=== PATIENT | female | born 1930 | race Two or more races ===

== ENCOUNTER 2018-01-05 15:04 | Inpatient (IN) | payer MEDICARE, BC ==
[~2018-01-05] VITALS: Ht 157.5 cm; Wt 81.6 kg
[2018-01-05 15:30] VITALS: BP 118/81
[2018-01-05] MEDS ORDERED: Metoprolol 5mg/5ml Inj IVP ONE ×2 (15:45→16:45)
[2018-01-05 15:50] LABS: HEMATOCRIT 33.9 % (37.0-47.0); HEMOGLOBIN 11.3 G/DL (12.0-16.0); MEAN CORPUSCULAR VOLUME 93 FL (80-99); PLATELET COUNT 217 K/UL (150-450); RED BLOOD COUNT 3.65 M/UL (4.20-5.40); RED CELL DISTRIBUTION WIDTH 17.2 % (11.6-14.8)
[2018-01-05] MEDS ORDERED: Digoxin 0.5mg/2ml Inj IVP ONE (16:00)
[2018-01-05 16:12] LABS: ANION GAP 17 mmol/L (5-15); BLOOD UREA NITROGEN 32 mg/dL (7-18); CALCIUM 8.9 MG/DL (8.5-10.1); CARBON DIOXIDE 18 MMOL/L (21-32); CHLORIDE 105 MMOL/L (98-107); CREATININE 0.9 MG/DL (0.55-1.30); POTASSIUM 4.8 MMOL/L (3.5-5.1); SODIUM 140 MMOL/L (136-145)
[2018-01-05 16:19] LABS: INR 0.9 (0.9-1.1)
[2018-01-05] MEDS ORDERED: FERROUS SULFAT325 MG ORAL (16:19)
[2018-01-05] MEDS ORDERED: PREDNISONE10 MG ORAL (16:19)
[2018-01-05] MEDS ORDERED: DOXEPIN HCL25 MG ORAL (16:19)
[2018-01-05] MEDS ORDERED: MULTI-VITAMIN1 EACH PO (16:19)
[2018-01-05 16:25] LABS: ALANINE AMINOTRANSFERASE 35 U/L (12-78); ALBUMIN 2.5 G/DL (3.4-5.0); ALBUMIN/GLOBULIN RATIO 0.7 (1.0-2.7); ALKALINE PHOSPHATASE 83 U/L (46-116); ASPARTATE AMINO TRANSFERASE 18 U/L (15-37); BILIRUBIN,TOTAL 0.4 MG/DL (0.2-1.0); CKMB 1.5 NG/ML (0.0-3.6); CREATINE KINASE 20 U/L (26-308)
[2018-01-05 16:30] VITALS: BP 125/92
[2018-01-05] MEDS ORDERED: ELIQUIS2.5 MG PO (16:38)
[2018-01-05] MEDS ORDERED: VITAMIN D22000 UNIT ORAL (16:38)
[2018-01-05] MEDS ORDERED: ALLEGRA ALLERG180 M1 PO (16:38)
[2018-01-05] MEDS ORDERED: AMIODARONE HCL400 M1 ORAL ×2 (16:38→16:43)
[2018-01-05] MEDS ORDERED: SYNTHROID75 MCG ORAL (16:38)
[2018-01-05] MEDS ORDERED: VITAMIN C500 M1 ORAL (16:38)
[2018-01-05] MEDS ORDERED: XANAX1 MG ORAL (16:38)
[2018-01-05] MEDS ORDERED: CAMPHO PHENIQUE TP (16:40)
[2018-01-05] MEDS ORDERED: CRANBERRY500 M4 PO (16:41)
[2018-01-05] MEDS ORDERED: COLACE100 MG ORAL (16:41)
[2018-01-05] MEDS ORDERED: FAMOTIDINE10 MG ORAL (16:42)
[2018-01-05] MEDS ORDERED: OCUVITE TABLET1 EAC1 ORAL (16:43)
[2018-01-05] MEDS ORDERED: PRAVASTATIN SOD20 M1 ORAL (16:43)
[2018-01-05] MEDS ORDERED: COREG25 MG ORAL (16:44)
[2018-01-05 17:31] VITALS: BP 154/112
--- NOTE | 2018-01-05 17:54 | Cardiac Electrophysiology PN ---
Subjective Subjective Patient seen in ER and DW Dr. Bhagat and both daughters in ER [id number] DW Dr Araiza. Objective Last 24 Hour Vital Signs Date Time Temp Pulse Resp B/P (MAP) Pulse Ox O2 Delivery O2 Flow Rate FiO2 01/05/18 17:31 131 27 154/112 94 Room Air 01/05/18 17:27 131 27 01/05/18 16:57 131 154/112 01/05/18 16:30 129 29 125/92 96 Room Air 01/05/18 16:21 120 01/05/18 15:51 132 118/81 01/05/18 15:30 97.2 137 26 118/81 98 Room Air 97.2 01/05/18 15:04 97.1 132 118/81 98 Room Air 97.2 Laboratory Tests Test 01/05/18 15:30 01/05/18 16:30 White Blood Count 19.0 K/UL (4.8-10.8) H Red Blood Count 3.65 M/UL (4.20-5.40) L Hemoglobin 11.3 G/DL (12.0-16.0) L Hematocrit 33.9 % (37.0-47.0) L Mean Corpuscular Volume 93 FL (80-99) Mean Corpuscular Hemoglobin 31.0 PG (27.0-31.0) Mean Corpuscular Hemoglobin Concent 33.4 G/DL (32.0-36.0) Red Cell Distribution Width 17.2 % (11.6-14.8) H Platelet Count 217 K/UL (150-450) Mean Platelet Volume 7.5 FL (6.5-10.1) Neutrophils (%) (Auto) % (45.0-75.0) Lymphocytes (%) (Auto) % (20.0-45.0) Monocytes (%) (Auto) % (1.0-10.0) Eosinophils (%) (Auto) % (0.0-3.0) Basophils (%) (Auto) % (0.0-2.0) Differential Total Cells Counted 100 Neutrophils % (Manual) 91 % (45-75) H Lymphocytes % (Manual) 7 % (20-45) L Monocytes % (Manual) 2 % (1-10) Eosinophils % (Manual) 0 % (0-3) Basophils % (Manual) 0 % (0-2) Band Neutrophils 0 % (0-8) Platelet Estimate Adequate Platelet Morphology Normal Hypochromasia Occasional Anisocytosis 1+ Prothrombin Time 9.4 SEC (9.30-11.50) Prothromb Time International Ratio 0.9 (0.9-1.1) Activated Partial Thromboplast Time 24 SEC (23-33) Sodium Level 140 MMOL/L (136-145) Potassium Level 4.8 MMOL/L (3.5-5.1) Chloride Level 105 MMOL/L (98-107) Carbon Dioxide Level 18 MMOL/L (21-32) L Anion Gap 17 mmol/L (5-15) H Blood Urea Nitrogen 32 mg/dL (7-18) H Creatinine 0.9 MG/DL (0.55-1.30) Estimat Glomerular Filtration Rate mL/min (>60) Glucose Level 191 MG/DL (74-106) H Calcium Level 8.9 MG/DL (8.5-10.1) Total Bilirubin 0.4 MG/DL (0.2-1.0) Aspartate Amino Transf (AST/SGOT) 18 U/L (15-37) Alanine Aminotransferase (ALT/SGPT) 35 U/L (12-78) Alkaline Phosphatase 83 U/L (46-116) Total Creatine Kinase 20 U/L (26-308) L Creatine Kinase MB 1.5 NG/ML (0.0-3.6) Creatine Kinase MB Relative Index 7.5 Troponin I 0.005 ng/mL (0.000-0.056) Pro-B-Type Natriuretic Peptide 5563 pg/mL (0-125) H Total Protein 5.9 G/DL (6.4-8.2) L Albumin 2.5 G/DL (3.4-5.0) L Globulin 3.4 g/dL Albumin/Globulin Ratio 0.7 (1.0-2.7) L Lipase 189 U/L (73-393) Lactic Acid Level 3.20 mmol/L (0.66-2.22) H Chandra Sosa MD January 05, 2018 17:54
[2018-01-05 20:00] VITALS: BP 159/88
[2018-01-05 20:25] LABS: BILIRUBIN, URINE NEGATIVE (NEGATIVE); COLOR,URINE AMBER; GLUCOSE, URINE (UA) NEGATIVE (NEGATIVE); KETONES,URINE NEGATIVE (NEGATIVE); LEUKOCYTE ESTERASE ,URINE 2+ (NEGATIVE); NITRITE,URINE NEGATIVE (NEGATIVE); PH,URINE 5 (4.5-8.0); PROTEIN,URINE 2+ (NEGATIVE); UROBILINOGEN,URINE NORMAL MG/DL (0.0-1.0)
[2018-01-05 20:31] LABS: APPEARANCE,URINE SLIGHTLY CLOUDY
[2018-01-05] MEDS ORDERED: Bactrim-DS 1 tab ORAL SCH (20:45)
[2018-01-05] MEDS ORDERED: Milk of Magnesia 30ml Ud ORAL PRN (21:00)
[2018-01-05] MEDS ORDERED: Zolpidem 5mg tab ORAL PRN (21:00)
[2018-01-05] MEDS: Cephalexin 250mg Cap ORAL SCH (22:58)
[2018-01-05] MEDS: Triamcinolone 0.1% 15gm Cr TOPIC PRN (22:59)
[2018-01-05] MEDS: Eliquis 2.5mg tablet ORAL SCH (22:59)
[2018-01-05] MEDS: Carvedilol 25mg Tab ORAL SCH (22:59)
[2018-01-05] MEDS: Amiodarone 200mg tab ORAL SCH (22:59)
[2018-01-05] MEDS: ALPRAZolam 0.5mg tab ORAL SCH (23:04)
[2018-01-06] VITALS: BP 117/72
--- NOTE | 2018-01-06 01:45 | Consultation ---
DATE OF CONSULTATION: 01/05/2018 CARDIAC ELECTROPHYSIOLOGY CONSULTATION CONSULTING PHYSICIAN: Chandra Sosa M.D. REFERRING PHYSICIAN: Montana Araiza M.D. REASON FOR CONSULTATION: Atrial fibrillation with rapid ventricular response. HISTORY OF PRESENT ILLNESS: The patient is a very pleasant 87-year-old lady with history of hypertension, paroxysmal atrial fibrillation as well as hypothyroidism, had multiple allergic reactions possibly including Norvasc. The patient's diltiazem was discontinued and I feel that her rash may be related to the diltiazem. The patient was brought in by ambulance from [facility] due to shortness of breath and tachycardia, heart rate 140s. In the emergency room, the patient was found to be in atrial fibrillation with rapid ventricular response, heart rate around 140s. Cardiac electrophysiology consultation was obtained for further evaluation and management. It is of note that the patient was recently at [facility] with some abdominal abscess that was drained. REVIEW OF SYSTEMS: Review of systems was performed and was negative other than what is mentioned in the history of present illness. PAST MEDICAL HISTORY: 1. Hypertension. 2. Paroxysmal atrial fibrillation. 3. History of small bowel obstruction. 4. Status post cholecystectomy. 5. Gastroesophageal reflux disease. 6. Right breast cancer status post lumpectomy. 7. Hyperlipidemia. 8. Hypothyroidism. 9. Hiatal hernia. FAMILY HISTORY: Noncontributory. SOCIAL HISTORY: She lives at home but currently at [facility]. Does not smoke or drink alcohol. Two daughters at bedside. PHYSICAL EXAMINATION: VITAL SIGNS: Blood pressure is , pulse 121, respirations 27. HEENT: Head and neck shows no JVD. LUNGS: Clear. CARDIOVASCULAR: Irregularly irregular. Tachycardic. S1 and S2. No gallop or murmur. ABDOMEN: Soft. EXTREMITIES: A 1+ pitting edema. LABORATORY DATA: Her labs show white count of 19,000, hemoglobin and hematocrit 11.7, hematocrit 34, and platelet count is 217. Sodium 140, potassium 4.8, BUN 13, creatinine 0.9, and glucose of 191. Lactic acid 3.2. Troponin is negative. BNP is 5563. ASSESSMENT AND PLAN: 1. Atrial fibrillation with rapid ventricular response, the patient was taken off of Cardizem. I will increase the Coreg to 25 mg b.i.d. and load the patient with digoxin. The patient is also on amiodarone that would be resumed. Hopefully we can control the rate that away. Also for anticoagulation purposes, the patient was on Eliquis 2.5 mg b.i.d., that would be resumed. BNP of more than 5000. We will get an echocardiogram for further evaluation and management. 2. Possible sepsis. White count of 19,000. Lactic acid 3.2. Antibiotic per Dr. Montana Araiza. It is of note that the patient has reported that she is allergic to cefepime, hydrochlorothiazide, nitrofurantoin, norfloxacin, olmesartan, and penicillin. 3. Status post drainage of abdominal abscess. Further evaluation by Surgery. Thank you very much, Dr. Araiza, for allowing me to participate in the care of this patient. Please do not hesitate to contact me for any questions regarding my evaluation. Chandra Sosa M.D. DR: Capri JOB#: [id number] CC:
[2018-01-06 04:00] VITALS: BP 132/67
[2018-01-06] MEDS: Cephalexin 250mg Cap ORAL SCH ×3 (06:59→23:29)
[2018-01-06 07:01] LABS: CHOLESTEROL 215 MG/DL (< 200); HDL CHOLESTEROL 45 MG/DL (40-60); TRIGLYCERIDES 280 MG/DL (30-150)
--- NOTE | 2018-01-06 07:22 | Emergency Room Report ---
History of Present Illness General Chief Complaint: Dyspnea/Respdistress Source: Patient Present Illness HPI Patient present from nursing facility with uncontrolled atrial fibrillation Patient is here with family who provide significant medical history [facility] Patient has been having nonspecific rash And dermatology recommended stopping calcium channel toña Patient's heart rate has been difficult to control over the past several days now Beta toña was increased minimally however with the lack of response patient was sent to the ER She does feel some palpitation sensation denies any chest pain denies any flank pain Patient has decubitus ulcers Had recent reported by family drainage of an abscess in the abdomen sounds to be likely from perforated diverticulitis Patient is also allergic to multiple medications Allergies: Coded Allergies: CEFEPIME (Verified Allergy, Unknown, 01/05/18) HYDROCHLOROTHIAZIDE (Verified Allergy, Unknown, 01/05/18) LANSOPRAZOLE (Verified Allergy, Unknown, 01/05/18) NITROFURANTOIN (Verified Allergy, Unknown, 01/05/18) NORFLOXACIN (Verified Allergy, Unknown, 01/05/18) OLMESARTAN (Verified Allergy, Unknown, 01/05/18) PANTOPRAZOLE (Verified Allergy, Unknown, 01/05/18) PENICILLINS (Verified Allergy, Unknown, 01/05/18) SULFA (SULFONAMIDE ANTIBIOTICS) (Verified Allergy, Unknown, 01/05/18) TRIAMTERENE (Verified Allergy, Unknown, 01/05/18) Patient History Past Medical History: see triage record Pertinent Family History: none Reviewed Nursing Documentation: PMH: Agreed; PSxH: Agreed Nursing Documentation-PMH Past Medical History: No History, Except For Hx Hypertension: Yes - hypothyroidism Hx COPD: Yes Hx Cancer: Yes - right breast CA with lumpectomy Hx Neurological Problems: No - weakness, Review of Systems All Other Systems: negative except mentioned in HPI Physical Exam Vital Signs Date Time Temp Pulse Resp B/P (MAP) Pulse Ox O2 Delivery O2 Flow Rate FiO2 01/05/18 15:04 97.1 132 118/81 98 Room Air 97.2 01/05/18 15:30 26 Sp02 EP Interpretation: reviewed, normal General Appearance: no apparent distress Head: normocephalic, atraumatic Eyes: bilateral eye PERRL ENT: normal pharynx, no angioedema Neck: full range of motion, supple, thyroid normal Respiratory: no respiratory distress, no retraction, crackles - Both lower lobes Cardiovascular #1: tachycardia, irregularly irregular Gastrointestinal: non tender, soft, other - Umbilical hernia Genitourinary: no CVA tenderness Musculoskeletal: other - Patient moving both upper extremities without focal deficit Neurologic: alert, oriented x3, responsive Skin: other - decubitus ulcer Lymphatic: no adenopathy Procedures Critical Care Time Critical Care Time 40 minutes for multiple re-evaluations Discussion with multiple physicians and specialty, complex case requiring repeat evaluation repeat dosing of arrhythmic medication not including any procedural time Medical Decision Making Diagnostic Impression: Primary Impression: Atrial fibrillation with RVR Additional Impressions: Sepsis CHF (congestive heart failure) ER Course Patient is complex with multiple differential diagnoses Upon arrival patient was provided with beta toña as well for improvement of heart rate Especially given the recent change in medications Patient's blood work however is revealing elevated white blood cell count Patient's lactic acid was also mildly elevated Given the recent history of abscess drainage there is concern regarding repeat presentation of the abscess family also reports that there was a recent CAT scan performed which showed again residual abscess formation Patient also has decubitus ulcers and other sources of infection Chest x-ray is concerning for signs of CHF Patient also has some mild edema clinically Please note that the sepsis poor recall including 30 mL/kg fluid bolus is limited secondary to patient's cardiac pathology and not wanting to fluid overload the patient Cardiology is in consultation at bedside Patient was also provided with digoxin in the ER Patient was written for broad-spectrum antibiotic initially family verbalized allergy to this medication which was Levaquin However the patient appeared to have been given that medication for her diverticulitis previously And on discussion with her primary physician they report that the medication does not have an allergy patient was therefore provided with that medicine prior to moving upstairs to inpatient care Labs Test 01/05/18 15:30 01/05/18 16:30 01/05/18 18:00 01/05/18 19:30 White Blood Count 19.0 K/UL (4.8-10.8) Red Blood Count 3.65 M/UL (4.20-5.40) Hemoglobin 11.3 G/DL (12.0-16.0) Hematocrit 33.9 % (37.0-47.0) Mean Corpuscular Volume 93 FL (80-99) Mean Corpuscular Hemoglobin 31.0 PG (27.0-31.0) Mean Corpuscular Hemoglobin Concent 33.4 G/DL (32.0-36.0) Red Cell Distribution Width 17.2 % (11.6-14.8) Platelet Count 217 K/UL (150-450) Mean Platelet Volume 7.5 FL (6.5-10.1) Neutrophils (%) (Auto) % (45.0-75.0) Lymphocytes (%) (Auto) % (20.0-45.0) Monocytes (%) (Auto) % (1.0-10.0) Eosinophils (%) (Auto) % (0.0-3.0) Basophils (%) (Auto) % (0.0-2.0) Differential Total Cells Counted 100 Neutrophils % (Manual) 91 % (45-75) Lymphocytes % (Manual) 7 % (20-45) Monocytes % (Manual) 2 % (1-10) Eosinophils % (Manual) 0 % (0-3) Basophils % (Manual) 0 % (0-2) Band Neutrophils 0 % (0-8) Platelet Estimate Adequate Platelet Morphology Normal Hypochromasia Occasional Anisocytosis 1+ Prothrombin Time 9.4 SEC (9.30-11.50) Prothromb Time International Ratio 0.9 (0.9-1.1) Activated Partial Thromboplast Time 24 SEC (23-33) Sodium Level 140 MMOL/L (136-145) Potassium Level 4.8 MMOL/L (3.5-5.1) Chloride Level 105 MMOL/L (98-107) Carbon Dioxide Level 18 MMOL/L (21-32) Anion Gap 17 mmol/L (5-15) Blood Urea Nitrogen 32 mg/dL (7-18) Creatinine 0.9 MG/DL (0.55-1.30) Estimat Glomerular Filtration Rate mL/min (>60) Glucose Level 191 MG/DL (74-106) Calcium Level 8.9 MG/DL (8.5-10.1) Total Bilirubin 0.4 MG/DL (0.2-1.0) Aspartate Amino Transf (AST/SGOT) 18 U/L (15-37) Alanine Aminotransferase (ALT/SGPT) 35 U/L (12-78) Alkaline Phosphatase 83 U/L (46-116) Total Creatine Kinase 20 U/L (26-308) Creatine Kinase MB 1.5 NG/ML (0.0-3.6) Creatine Kinase MB Relative Index 7.5 Troponin I 0.005 ng/mL (0.000-0.056) Pro-B-Type Natriuretic Peptide 5563 pg/mL (0-125) Total Protein 5.9 G/DL (6.4-8.2) Albumin 2.5 G/DL (3.4-5.0) Globulin 3.4 g/dL Albumin/Globulin Ratio 0.7 (1.0-2.7) Lipase 189 U/L (73-393) Lactic Acid Level 3.20 mmol/L (0.66-2.22) 2.20 mmol/L (0.66-2.22) Urine Color Genna Urine Appearance Slightly cloudy Urine pH 5 (4.5-8.0) Urine Specific [place] 1.015 (1.005-1.035) Urine Protein 2+ (NEGATIVE) Urine Glucose (UA) Negative (NEGATIVE) Urine Ketones Negative (NEGATIVE) Urine Occult Blood 1+ (NEGATIVE) Urine Nitrite Negative (NEGATIVE) Urine Bilirubin Negative (NEGATIVE) Urine Ictotest Negative Urine Urobilinogen Normal MG/DL (0.0-1.0) Urine Leukocyte Esterase 2+ (NEGATIVE) Urine RBC 5-10 /HPF (0 - 2) Urine WBC 15-20 /HPF (0 - 2) Urine Squamous Epithelial Cells Moderate /LPF (NONE/OCC) Urine Bacteria Moderate /HPF (NONE) Test 01/06/18 05:05 Hemoglobin A1c 6.0 % (4.3-6.0) Magnesium Level 2.0 MG/DL (1.8-2.4) Troponin I 0.029 ng/mL (0.000-0.056) Triglycerides Level 280 MG/DL (30-150) Cholesterol Level 215 MG/DL (< 200) LDL Cholesterol 129 mg/dL (<100) HDL Cholesterol 45 MG/DL (40-60) Cholesterol/HDL Ratio 4.8 (3.3-4.4) Thyroid Stimulating Hormone (TSH) 2.068 uiU/mL (0.358-3.740) Free Thyroxine 0.87 NG/DL (0.76-1.46) Digoxin Level 0.6 NG/ML (0.9-2.0) EKG Diagnostic Results Rate: tachycardiac Rhythm: other - Nature fibrilation ST Segments: other - Nonspecific ST and T-wave changes Rhythm Strip Diag. Results EP Interpretation: yes Rate: 134 Rhythm: no PVC's, no ectopy, other - Irregularly regular, tachycardic Chest X-Ray Diagnostic Results Chest X-Ray Diagnostic Results : Chest X-Ray Ordered: Yes # of Views/Limited/Complete: 1 View Indication: Chest Pain EP Interpretation: Yes Interpretation: no pneumothorax, other - Cardiomegaly, pulmonary congestion , cannot rule out infiltrate Impression: Other - CHF Electronically Signed by: Marsha Bhagat DO Last Vital Signs Date Time Temp Pulse Resp B/P (MAP) Pulse Ox O2 Delivery O2 Flow Rate FiO2 01/06/18 04:00 98 01/06/18 04:00 97.5 20 132/67 97 Room Air 97.5 Status: improved Disposition: ADMITTED INPATIENT Condition: Serious Referrals: JACOBY WELDON MD (PCP) Marsha Bhagat DO January 06, 2018 07:22
[2018-01-06 09:00] VITALS: BP 144/86
[2018-01-06] MEDS: Eliquis 2.5mg tablet ORAL SCH ×2 (09:01→17:29)
[2018-01-06] MEDS: Carvedilol 25mg Tab ORAL SCH ×2 (09:01→21:24)
[2018-01-06] MEDS: Digoxin 0.125mg tab ORAL SCH (09:01)
[2018-01-06] MEDS: Amiodarone 200mg tab ORAL SCH ×2 (09:01→21:25)
--- NOTE | 2018-01-06 10:55 | History & Physical ---
History and Physical History & Physicial HP dictated # [id number] FABIENNE GODFREY January 06, 2018 10:55
[2018-01-06 12:00] VITALS: BP 133/77
--- NOTE | 2018-01-06 12:13 | Cardiology Report ---
APPROVED REPORT EXAM: Two-dimensional and M-mode echocardiogram with Doppler and color Doppler. INDICATION Arrhythmia M-Mode DIMENSIONS IVSd1.2 (0.7-1.1cm)Left Atrium (MM)3.8 (1.6-4.0cm) LVDd3.2 (3.5-5.6cm)Aortic Root2.3 (2.0-3.7cm) PWd1.0 (0.7-1.1cm)Aortic Cusp Exc.1.7 (1.5-2.0cm) LVDs2.4 (2.5-4.0cm) PWs1.4 cm Normal left ventricular chamber size, systolic function and wall motion. Left ventricular ejection fraction estimated to be 55 %. Mild left ventricular hypertrophy. Trace pericardial effusion. Left atrial size at upper limits of normal. Right cardiac chamber sizes are within normal limits. Focal aortic valve sclerosis with adequate cusp excursion. Thickened mitral valve leaflets with normal excursion. Moderate mitral annulus and aortic root calcification. Normal pulmonic valve structure. Normal tricuspid valve structure. IVC dilated at 2.3 cm with physiological collapse. A color flow and spectral Doppler study was performed and revealed: No aortic insufficiency. Moderate mitral regurgitation. Left ventricular diastolic function could not be determined due to A-Fib. Mild tricuspid regurgitation. Tricuspid systolic velocities suggests peak right ventricular systolic pressure of 51 mmHg, consistent with moderate pulmonary hypertension. Trace pulmonic regurgitation present.
--- NOTE | 2018-01-06 13:32 | Cardiac Electrophysiology PN ---
Assessment/Plan Assessment/Plan 1. Atrial flutter with rapid ventricular response. HR better on Coreg 25 mg bid , digoxin 0.125 daily and amiodarone 200 bid. On Eliquis 2.5 mg bid. Dig level 0.6 today 2. CHF with BNP of more than 5000. Echocardiogram showed EF55%, Likely due to HTN Hrt Dz 3. Possible sepsis. White count of 19,000. Lactic acid 3.2. Antibiotic per Dr. Montana Araiza. It is of note that the patient has reported that she is allergic to cefepime, hydrochlorothiazide, nitrofurantoin, norfloxacin, olmesartan, and penicillin. 4. Status post drainage of abdominal abscess. Further evaluation by Surgery. Repeat CBC today 5. Hyperlipidemia on Pravachol 6. Hypothyroidism DW daughter and RN and Dr Araiza Subjective Subjective Feeling better. Remained in atrial flutter with HR 92. Echo EF 55% Objective Last 24 Hour Vital Signs Date Time Temp Pulse Resp B/P (MAP) Pulse Ox O2 Delivery O2 Flow Rate FiO2 01/06/18 12:00 97.7 92 20 133/77 98 Room Air 97.7 01/06/18 12:00 88 01/06/18 09:01 96 01/06/18 09:01 96 144/86 01/06/18 09:00 97.5 96 20 144/86 96 Room Air 97.5 01/06/18 08:00 97 01/06/18 04:00 98 01/06/18 04:00 97.5 120 20 132/67 97 Room Air 97.5 01/06/18 00:00 114 01/06/18 00:00 97.3 90 20 117/72 99 Room Air 97.3 01/05/18 22:59 136 159/88 01/05/18 20:00 129 01/05/18 20:00 97.5 136 20 159/88 96 Room Air 97.5 01/05/18 18:50 97.8 134 24 129/112 96 Room Air 01/05/18 17:31 131 27 154/112 94 Room Air 01/05/18 17:27 131 27 01/05/18 16:57 131 154/112 01/05/18 16:30 129 29 125/92 96 Room Air 01/05/18 16:21 120 01/05/18 15:51 132 118/81 01/05/18 15:30 97.2 137 26 118/81 98 Room Air 97.2 01/05/18 15:04 97.1 132 118/81 98 Room Air 97.2 Intake and Output 01/05/18 01/06/18 19:00 07:00 # Voids 1 Laboratory Tests Test 01/05/18 15:30 01/05/18 16:30 01/05/18 18:00 01/05/18 19:30 White Blood Count 19.0 K/UL (4.8-10.8) H Red Blood Count 3.65 M/UL (4.20-5.40) L Hemoglobin 11.3 G/DL (12.0-16.0) L Hematocrit 33.9 % (37.0-47.0) L Mean Corpuscular Volume 93 FL (80-99) Mean Corpuscular Hemoglobin 31.0 PG (27.0-31.0) Mean Corpuscular Hemoglobin Concent 33.4 G/DL (32.0-36.0) Red Cell Distribution Width 17.2 % (11.6-14.8) H Platelet Count 217 K/UL (150-450) Mean Platelet Volume 7.5 FL (6.5-10.1) Neutrophils (%) (Auto) % (45.0-75.0) Lymphocytes (%) (Auto) % (20.0-45.0) Monocytes (%) (Auto) % (1.0-10.0) Eosinophils (%) (Auto) % (0.0-3.0) Basophils (%) (Auto) % (0.0-2.0) Differential Total Cells Counted 100 Neutrophils % (Manual) 91 % (45-75) H Lymphocytes % (Manual) 7 % (20-45) L Monocytes % (Manual) 2 % (1-10) Eosinophils % (Manual) 0 % (0-3) Basophils % (Manual) 0 % (0-2) Band Neutrophils 0 % (0-8) Platelet Estimate Adequate Platelet Morphology Normal Hypochromasia Occasional Anisocytosis 1+ Prothrombin Time 9.4 SEC (9.30-11.50) Prothromb Time International Ratio 0.9 (0.9-1.1) Activated Partial Thromboplast Time 24 SEC (23-33) Sodium Level 140 MMOL/L (136-145) Potassium Level 4.8 MMOL/L (3.5-5.1) Chloride Level 105 MMOL/L (98-107) Carbon Dioxide Level 18 MMOL/L (21-32) L Anion Gap 17 mmol/L (5-15) H Blood Urea Nitrogen 32 mg/dL (7-18) H Creatinine 0.9 MG/DL (0.55-1.30) Estimat Glomerular Filtration Rate mL/min (>60) Glucose Level 191 MG/DL (74-106) H Calcium Level 8.9 MG/DL (8.5-10.1) Total Bilirubin 0.4 MG/DL (0.2-1.0) Aspartate Amino Transf (AST/SGOT) 18 U/L (15-37) Alanine Aminotransferase (ALT/SGPT) 35 U/L (12-78) Alkaline Phosphatase 83 U/L (46-116) Total Creatine Kinase 20 U/L (26-308) L Creatine Kinase MB 1.5 NG/ML (0.0-3.6) Creatine Kinase MB Relative Index 7.5 Troponin I 0.005 ng/mL (0.000-0.056) Pro-B-Type Natriuretic Peptide 5563 pg/mL (0-125) H Total Protein 5.9 G/DL (6.4-8.2) L Albumin 2.5 G/DL (3.4-5.0) L Globulin 3.4 g/dL Albumin/Globulin Ratio 0.7 (1.0-2.7) L Lipase 189 U/L (73-393) Lactic Acid Level 3.20 mmol/L (0.66-2.22) H 2.20 mmol/L (0.66-2.22) Urine Color Genna Urine Appearance Slightly cloudy Urine pH 5 (4.5-8.0) Urine Specific [place] 1.015 (1.005-1.035) Urine Protein 2+ (NEGATIVE) H Urine Glucose (UA) Negative (NEGATIVE) Urine Ketones Negative (NEGATIVE) Urine Occult Blood 1+ (NEGATIVE) H Urine Nitrite Negative (NEGATIVE) Urine Bilirubin Negative (NEGATIVE) Urine Ictotest Negative Urine Urobilinogen Normal MG/DL (0.0-1.0) Urine Leukocyte Esterase 2+ (NEGATIVE) H Urine RBC 5-10 /HPF (0 - 2) H Urine WBC 15-20 /HPF (0 - 2) H Urine Squamous Epithelial Cells Moderate /LPF (NONE/OCC) H Urine Bacteria Moderate /HPF (NONE) H Test 01/06/18 05:05 Hemoglobin A1c 6.0 % (4.3-6.0) Magnesium Level 2.0 MG/DL (1.8-2.4) Troponin I 0.029 ng/mL (0.000-0.056) Triglycerides Level 280 MG/DL (30-150) H Cholesterol Level 215 MG/DL (< 200) H LDL Cholesterol 129 mg/dL (<100) H HDL Cholesterol 45 MG/DL (40-60) Cholesterol/HDL Ratio 4.8 (3.3-4.4) H Thyroid Stimulating Hormone (TSH) 2.068 uiU/mL (0.358-3.740) Free Thyroxine 0.87 NG/DL (0.76-1.46) Digoxin Level 0.6 NG/ML (0.9-2.0) L Microbiology Date/Time Source Procedure Growth Status 01/05/18 19:30 Urine,Clean Catch Urine Culture - Preliminary Resulted Objective HEENT: Head and neck shows no JVD. LUNGS: Clear. CARDIOVASCULAR: Irregularly irregular. Tachycardic. S1 and S2. No gallop or murmur. ABDOMEN: Soft. EXTREMITIES: A 1+ pitting edema. Chandra Sosa MD January 06, 2018 13:32
[2018-01-06 16:00] VITALS: BP 144/67
[2018-01-06] MEDS: Triamcinolone 0.1% 15gm Cr TOPIC PRN (16:40)
--- NOTE | 2018-01-06 19:45 | History and Physical Report ---
DATE OF ADMISSION: 01/05/2018 CHIEF COMPLAINT: The patient had palpitations and shortness of breath in halfway facility. HISTORY OF PRESENT ILLNESS: This is an 87-year-old white female with history of paroxysmal atrial fibrillation. The patient was sent to the emergency room by ambulance for shortness of breath and palpitation. She was found to be in atrial fibrillation with rapid ventricular response. Apparently, the patient's Diltiazem was discontinued because of possibility the patient may have allergic reaction. In the emergency room, the heart rate was in 140s. The patient was seen by Dr. Sosa in Cardiology consultation, who increased the Coreg of the patient to 25 mg b.i.d. and gave the patient also digoxin. The patient was admitted onto telemetry. The patient was also found to have urinary tract infection and also leukocytosis with white count of 19,000. PAST MEDICAL HISTORY: Includes history of hypertension and small bowel obstruction. The patient is status post cholecystectomy, gastroesophageal reflux disease, history of breast cancer, status post lumpectomy, hyperlipidemia, hypothyroidism, and hiatal hernia. MEDICATIONS: Reviewed in the EMR. SOCIAL HISTORY: The patient usually lives at home, but recently at [facility]. No history of alcohol abuse or smoking. REVIEW OF SYSTEMS: As above. PHYSICAL EXAMINATION: GENERAL: The patient is an elderly female, in no acute distress. VITAL SIGNS: Blood pressure 144/86, pulse is 96, temperature 97.5 degrees, and respirations 20. HEENT: Somewhat pale conjunctivae. Anicteric sclerae. NECK: Supple. LUNGS: Clear to auscultation. HEART: S1 and S2. Irregularly irregular. ABDOMEN: Soft and nontender. EXTREMITIES: Bilateral pitting edema. LABORATORY FINDINGS: The chemistry panel shows serum sodium 140, potassium 4.8, chloride 105, CO2 18, BUN is 32, and creatinine 0.9. CBC shows WBC of 19,000, hematocrit is 33.9, hemoglobin is 11.3, and platelets 217,000. UA shows 15 to 20 WBCs per high-power field, 5 to 10 RBCs per high-power field, and 2+ protein. ASSESSMENT: This is an 87-year-old female, who was admitted with atrial fibrillation with rapid ventricular response. Her heart rate is better now. She has also urinary tract infection and leukocytosis. PLAN: The patient will be followed in telemetry. Medication has been adjusted per Dr. Sosa. The patient will be on antibiotics for urinary tract infection. Urine culture will be checked. Case was discussed extensively with daughter. Montana Araiza M.D. DR: Cassi JOB#: [id number] CC:
[2018-01-06 20:00] VITALS: BP 131/80
[2018-01-06] MEDS: Docusate 100mg cap ORAL SCH (21:23)
[2018-01-06] MEDS: ALPRAZolam 0.5mg tab ORAL SCH (21:24)
[2018-01-07 04:00] VITALS: BP 131/63
[2018-01-07] MEDS: Cephalexin 250mg Cap ORAL SCH ×3 (07:28→22:04)
[2018-01-07 08:00] VITALS: BP 129/66
[2018-01-07] MEDS: Eliquis 2.5mg tablet ORAL SCH ×2 (08:30→17:19)
[2018-01-07] MEDS: Docusate 100mg cap ORAL SCH ×2 (08:30→21:40)
[2018-01-07] MEDS: Digoxin 0.125mg tab ORAL SCH (08:31)
[2018-01-07] MEDS: Carvedilol 25mg Tab ORAL SCH ×2 (08:31→21:41)
[2018-01-07] MEDS: Amiodarone 200mg tab ORAL SCH ×2 (08:31→21:40)
[2018-01-07] MEDS: Triamcinolone 0.1% 15gm Cr TOPIC PRN ×2 (10:43→22:01)
[2018-01-07 12:00] VITALS: BP 149/72
[2018-01-07 12:21] LABS: ANION GAP 11 mmol/L (5-15); BLOOD UREA NITROGEN 27 mg/dL (7-18); CALCIUM 8.3 MG/DL (8.5-10.1); CARBON DIOXIDE 21 MMOL/L (21-32); CHLORIDE 106 MMOL/L (98-107); CREATININE 0.9 MG/DL (0.55-1.30); POTASSIUM 4.7 MMOL/L (3.5-5.1); SODIUM 138 MMOL/L (136-145)
[2018-01-07 12:39] LABS: BASOPHILS % (AUTO) 0.6 % (0.0-2.0); EOSINOPHILS % (AUTO) 1.8 % (0.0-3.0); HEMATOCRIT 32.8 % (37.0-47.0); HEMOGLOBIN 10.9 G/DL (12.0-16.0); LYMPHOCYTES % (AUTO) 7.3 % (20.0-45.0); MEAN CORPUSCULAR VOLUME 95 FL (80-99); NEUTROPHILS % (AUTO) 84.3 % (45.0-75.0); PLATELET COUNT 207 K/UL (150-450); RED BLOOD COUNT 3.44 M/UL (4.20-5.40); RED CELL DISTRIBUTION WIDTH 17.2 % (11.6-14.8); WHITE BLOOD COUNT 11.5 K/UL (4.8-10.8)
--- NOTE | 2018-01-07 13:22 | Physician Query ---
--------- THIS DOCUMENT IS A PERMANENT PART OF THE MEDICAL RECORD --------- PLEASE COMPLETE THE DOCUMENT BEFORE SIGNING Dear Dr. Araiza Date: 01/07/2018 Plant Health Care Technician/CDS Name: Javier Pierce Plant Health Care Technician / CDS Phone # Exercise your independent professional judgment when responding to query. Question asked do not imply a particular answer is desired/expected Clinical Documentation States: Patient presented with UTI and started on broad spectrum antibiotics ( Levofloxacin). Clinical Findings Show: Heart rate of 132 respiratory rate of 26 WBC count of 19,000 lactic acid level of 3.7 Please clarify which, if any of the following is the most likely etiology of the above symptoms and treatment rendered: [ x ] Sepsis [ ] Severe sepsis (sepsis with organ dysfunction secondary to infection) [ ] SIRS non-infectious origin (without organ dysfunction) [ ] Septic shock (severe sepsis plus hypotension and organ hypoperfusion) [ ] Localized infection only, without systemic illness please specify site: [ ] Bacteremia (abnormal lab finding only, does not indicate systemic illness Other: Please clarify: Unable to determine: provide reason: Sepsis Criteria Sepsis: Presence of 1 or more criteria in this row. Positive cultures (but not required) or WBCs present in otherwise sterile fluid: blood, urine, sputum, CSF , etc.? Prescribed anti-infective therapy: antibiotic, antifungal, and other? Documentation of pneumonia: positive x-ray or clinical presentation? Perforated viscus: perforation of a hollow organ, e.g. bowel? SIRS: Presence of > 2 criteria in this row Temperature: > 100.4 F. or < 96.8 F. Heart rate: > 90 bpm Respiratory rate: > 20/min. WBC count: > 12,000/mm2 < 4,000/mm2 > 10% bands present on admission? [ ] Yes [ ] No [ ] Clinically undeterminable Please also document in your Progress Notes and/or Discharge Summary and indicate if the condition was present on admission. MTDD
--- NOTE | 2018-01-07 14:21 | General Progress Note ---
Assessment/Plan Problem List: (1) UTI (urinary tract infection) ICD Codes: N39.0 - Urinary tract infection, site not specified SNOMED: 62035161 (2) Atrial fibrillation with RVR ICD Codes: I48.91 - Unspecified atrial fibrillation SNOMED: 991148905275083 (3) Sepsis ICD Codes: A41.9 - Sepsis, unspecified organism SNOMED: 07467776 (4) CHF (congestive heart failure) ICD Codes: I50.9 - Heart failure, unspecified SNOMED: 63476526 Assessment/Plan Abxs rate control Discussed with RN will discuss with dr Sosa Subjective Allergies: Coded Allergies: CEFEPIME (Verified Allergy, Unknown, 01/05/18) HYDROCHLOROTHIAZIDE (Verified Allergy, Unknown, 01/05/18) LANSOPRAZOLE (Verified Allergy, Unknown, 01/05/18) NITROFURANTOIN (Verified Allergy, Unknown, 01/05/18) NORFLOXACIN (Verified Allergy, Unknown, 01/05/18) OLMESARTAN (Verified Allergy, Unknown, 01/05/18) PANTOPRAZOLE (Verified Allergy, Unknown, 01/05/18) PENICILLINS (Verified Allergy, Unknown, 01/05/18) SULFA (SULFONAMIDE ANTIBIOTICS) (Verified Allergy, Unknown, 01/05/18) TRIAMTERENE (Verified Allergy, Unknown, 01/05/18) Subjective feeels ok Objective Last 24 Hour Vital Signs Date Time Temp Pulse Resp B/P (MAP) Pulse Ox O2 Delivery O2 Flow Rate FiO2 01/07/18 08:31 93 01/07/18 08:31 93 112/78 01/07/18 08:00 97.3 83 18 129/66 98 Room Air 97.3 01/07/18 08:00 86 01/07/18 04:12 89 01/07/18 04:00 97.0 85 20 131/63 98 Room Air 97.0 01/07/18 00:23 96 01/06/18 21:24 97 146/94 01/06/18 20:36 103 01/06/18 20:00 97.5 95 21 131/80 96 Room Air 97.5 01/06/18 16:00 98.2 90 20 144/67 98 Room Air 98.2 01/06/18 16:00 105 Intake and Output 01/06/18 01/07/18 19:00 07:00 Intake Total 360 ml Output Total 1400 ml Balance 360 ml -1400 ml Intake Oral 360 ml Output Urine Total 1400 ml # Voids 3 Laboratory Tests 01/07/18 12:00: White Blood Count 11.5H, Red Blood Count 3.44L, Hemoglobin 10.9L, Hematocrit 32.8L, Mean Corpuscular Volume 95, Mean Corpuscular Hemoglobin 31.8H, Mean Corpuscular Hemoglobin Concent 33.3, Red Cell Distribution Width 17.2H, Platelet Count 207, Mean Platelet Volume 7.8, Neutrophils (%) (Auto) 84.3H, Lymphocytes (%) (Auto) 7.3L, Monocytes (%) (Auto) 6.0, Eosinophils (%) (Auto) 1.8, Basophils (%) (Auto) 0.6, Sodium Level 138, Potassium Level 4.7, Chloride Level 106, Carbon Dioxide Level 21, Anion Gap 11, Blood Urea Nitrogen 27H, Creatinine 0.9, Estimat Glomerular Filtration Rate , Glucose Level 145H, Calcium Level 8.3L Height (Feet): 5 Height (Inches): 2.00 Weight (Pounds): 180 Cardiovascular: normal rate Respiratory/Chest: lungs clear Edema: 3+ Generalized FABIENNE GODFREY January 07, 2018 14:21
[2018-01-07 16:00] VITALS: BP 133/66
--- NOTE | 2018-01-07 16:16 | Cardiac Electrophysiology PN ---
Assessment/Plan Assessment/Plan 1. Atrial flutter with rapid ventricular response. HR better on Coreg 25 mg bid , digoxin 0.125 daily and amiodarone 200 bid. On Eliquis 2.5 mg bid. Dig level 0.6 2. Diastolic CHF with BNP of more than 5000. EF 55%, Likely due to HTN Hrt Dz 3. Possible sepsis. White count of 19,000. Lactic acid 3.2.Down to [address] [place] Araiza. Allergic to cefepime, hydrochlorothiazide, nitrofurantoin, norfloxacin, olmesartan, and penicillin. 4. Status post drainage of abdominal abscess. Further evaluation by Surgery. 5. Hyperlipidemia on Pravachol 6. Hypothyroidism DW RN Subjective Subjective Remained in atrial flutter in 70s. Echo EF 55% Objective Last 24 Hour Vital Signs Date Time Temp Pulse Resp B/P (MAP) Pulse Ox O2 Delivery O2 Flow Rate FiO2 01/07/18 12:00 98.4 79 20 149/72 96 Room Air 98.4 79 01/07/18 12:00 85 01/07/18 08:31 93 01/07/18 08:31 93 112/78 01/07/18 08:00 97.3 83 18 129/66 98 Room Air 97.3 01/07/18 08:00 86 01/07/18 04:12 89 01/07/18 04:00 97.0 85 20 131/63 98 Room Air 97.0 01/07/18 00:23 96 01/06/18 21:24 97 146/94 01/06/18 20:36 103 01/06/18 20:00 97.5 95 21 131/80 96 Room Air 97.5 Intake and Output 01/06/18 01/07/18 19:00 07:00 Intake Total 360 ml Output Total 1400 ml Balance 360 ml -1400 ml Intake Oral 360 ml Output Urine Total 1400 ml # Voids 3 Laboratory Tests Test 01/07/18 12:00 White Blood Count 11.5 K/UL (4.8-10.8) H Red Blood Count 3.44 M/UL (4.20-5.40) L Hemoglobin 10.9 G/DL (12.0-16.0) L Hematocrit 32.8 % (37.0-47.0) L Mean Corpuscular Volume 95 FL (80-99) Mean Corpuscular Hemoglobin 31.8 PG (27.0-31.0) H Mean Corpuscular Hemoglobin Concent 33.3 G/DL (32.0-36.0) Red Cell Distribution Width 17.2 % (11.6-14.8) H Platelet Count 207 K/UL (150-450) Mean Platelet Volume 7.8 FL (6.5-10.1) Neutrophils (%) (Auto) 84.3 % (45.0-75.0) H Lymphocytes (%) (Auto) 7.3 % (20.0-45.0) L Monocytes (%) (Auto) 6.0 % (1.0-10.0) Eosinophils (%) (Auto) 1.8 % (0.0-3.0) Basophils (%) (Auto) 0.6 % (0.0-2.0) Sodium Level 138 MMOL/L (136-145) Potassium Level 4.7 MMOL/L (3.5-5.1) Chloride Level 106 MMOL/L (98-107) Carbon Dioxide Level 21 MMOL/L (21-32) Anion Gap 11 mmol/L (5-15) Blood Urea Nitrogen 27 mg/dL (7-18) H Creatinine 0.9 MG/DL (0.55-1.30) Estimat Glomerular Filtration Rate mL/min (>60) Glucose Level 145 MG/DL (74-106) H Calcium Level 8.3 MG/DL (8.5-10.1) L Microbiology Date/Time Source Procedure Growth Status 01/05/18 16:45 Blood Blood Culture - Preliminary NO GROWTH AFTER 24 HOURS Resulted 01/05/18 16:30 Blood Blood Culture - Preliminary NO GROWTH AFTER 24 HOURS Resulted 01/05/18 18:00 Nasal Nares MRSA Culture - Final NO METHICILLIN RESISTANT STAPH AUREUS... Complete 01/05/18 19:30 Urine,Clean Catch Urine Culture - Preliminary Gram Negative Bacillus 1 Resulted 01/05/18 18:00 Rectum VRE Culture - Final NO VANCOMYCIN RESISTANT ENTEROCOCCUS ... Complete Objective HEENT: Head and neck shows no JVD. LUNGS: Clear. CARDIOVASCULAR: Irregularly irregular S1 and S2. No gallop or murmur. ABDOMEN: Soft. EXTREMITIES: A 1+ pitting edema. Chandra Sosa MD January 07, 2018 16:16
[2018-01-07 20:00] VITALS: BP 118/74
[2018-01-07 21:30] VITALS: BP 131/79
[2018-01-07] MEDS: ALPRAZolam 0.5mg tab ORAL SCH (21:42)
[2018-01-08] MEDS: Triamcinolone 0.1% 15gm Cr TOPIC PRN (05:20)
[2018-01-08] MEDS: Cephalexin 250mg Cap ORAL SCH (06:19)
[2018-01-08 08:00] VITALS: BP 148/78
[2018-01-08] MEDS: Amiodarone 200mg tab ORAL SCH (09:25)
[2018-01-08] MEDS: Eliquis 2.5mg tablet ORAL SCH (09:26)
[2018-01-08] MEDS: Docusate 100mg cap ORAL SCH (09:27)
[2018-01-08] MEDS: Carvedilol 25mg Tab ORAL SCH (09:27)
[2018-01-08] MEDS: Digoxin 0.125mg tab ORAL SCH (09:30)
[2018-01-08 12:00] VITALS: BP 117/59
[2018-01-08] MEDS ORDERED: LEVAQUIN250 M1 ORAL (14:11)
[2018-01-08] MEDS ORDERED: PACERONE200 MG ORAL (14:11)
--- NOTE | 2018-01-08 14:13 | General Progress Note ---
Assessment/Plan Problem List: (1) UTI (urinary tract infection) ICD Codes: N39.0 - Urinary tract infection, site not specified SNOMED: 34008765 (2) Atrial fibrillation with RVR ICD Codes: I48.91 - Unspecified atrial fibrillation SNOMED: 144467298507238 (3) Sepsis ICD Codes: A41.9 - Sepsis, unspecified organism SNOMED: 05030395 (4) CHF (congestive heart failure) ICD Codes: I50.9 - Heart failure, unspecified SNOMED: 66596356 Assessment/Plan Dc keflex cont with Levaquin Dc today Subjective Allergies: Coded Allergies: CEFEPIME (Verified Allergy, Unknown, 01/05/18) HYDROCHLOROTHIAZIDE (Verified Allergy, Unknown, 01/05/18) LANSOPRAZOLE (Verified Allergy, Unknown, 01/05/18) NITROFURANTOIN (Verified Allergy, Unknown, 01/05/18) NORFLOXACIN (Verified Allergy, Unknown, 01/05/18) OLMESARTAN (Verified Allergy, Unknown, 01/05/18) PANTOPRAZOLE (Verified Allergy, Unknown, 01/05/18) PENICILLINS (Verified Allergy, Unknown, 01/05/18) SULFA (SULFONAMIDE ANTIBIOTICS) (Verified Allergy, Unknown, 01/05/18) TRIAMTERENE (Verified Allergy, Unknown, 01/05/18) Subjective feels ok Objective Last 24 Hour Vital Signs Date Time Temp Pulse Resp B/P (MAP) Pulse Ox O2 Delivery O2 Flow Rate FiO2 01/08/18 12:02 72 01/08/18 12:00 97.5 87 19 117/59 97 Room Air 97.5 01/08/18 09:30 88 01/08/18 09:27 88 148/78 01/08/18 08:00 97.0 88 19 148/78 98 Room Air 97.0 01/08/18 07:33 76 01/08/18 04:00 81 01/08/18 00:00 83 01/07/18 21:41 93 131/79 01/07/18 21:30 97.9 93 20 131/79 97 Room Air 97.9 01/07/18 20:00 81 01/07/18 20:00 97.9 99 20 118/74 97 Room Air 97.9 01/07/18 16:00 97.0 89 20 133/66 97 Room Air 97.0 89 5/7/18 16:00 80 Intake and Output 01/07/18 01/08/18 19:00 07:00 Intake Total 860 ml Output Total 700 ml Balance 160 ml Intake Oral 860 ml Output Urine Total 700 ml # Voids 7 # Bowel Movements 3 Height (Feet): 5 Height (Inches): 2.00 Weight (Pounds): 180 FABIENNE GODFREY January 08, 2018 14:13
--- NOTE | 2018-01-08 14:17 | General Progress Note ---
Assessment/Plan Problem List: (1) UTI (urinary tract infection) ICD Codes: N39.0 - Urinary tract infection, site not specified SNOMED: 16319097 (2) Atrial fibrillation with RVR ICD Codes: I48.91 - Unspecified atrial fibrillation SNOMED: 104259145701407 (3) Sepsis ICD Codes: A41.9 - Sepsis, unspecified organism SNOMED: 20847628 (4) CHF (congestive heart failure) ICD Codes: I50.9 - Heart failure, unspecified SNOMED: 61810417 (5) Severe protein-calorie malnutrition ICD Codes: E43 - Unspecified severe protein-calorie malnutrition SNOMED: 279175709 Assessment/Plan Dc keflex cont with Levaquin Dc today Subjective Allergies: Coded Allergies: CEFEPIME (Verified Allergy, Unknown, 01/05/18) HYDROCHLOROTHIAZIDE (Verified Allergy, Unknown, 01/05/18) LANSOPRAZOLE (Verified Allergy, Unknown, 01/05/18) NITROFURANTOIN (Verified Allergy, Unknown, 01/05/18) NORFLOXACIN (Verified Allergy, Unknown, 01/05/18) OLMESARTAN (Verified Allergy, Unknown, 01/05/18) PANTOPRAZOLE (Verified Allergy, Unknown, 01/05/18) PENICILLINS (Verified Allergy, Unknown, 01/05/18) SULFA (SULFONAMIDE ANTIBIOTICS) (Verified Allergy, Unknown, 01/05/18) TRIAMTERENE (Verified Allergy, Unknown, 01/05/18) Subjective feels ok Objective Last 24 Hour Vital Signs Date Time Temp Pulse Resp B/P (MAP) Pulse Ox O2 Delivery O2 Flow Rate FiO2 01/08/18 12:02 72 01/08/18 12:00 97.5 87 19 117/59 97 Room Air 97.5 01/08/18 09:30 88 01/08/18 09:27 88 148/78 01/08/18 08:00 97.0 88 19 148/78 98 Room Air 97.0 01/08/18 07:33 76 01/08/18 04:00 81 01/08/18 00:00 83 01/07/18 21:41 93 131/79 01/07/18 21:30 97.9 93 20 131/79 97 Room Air 97.9 01/07/18 20:00 81 01/07/18 20:00 97.9 99 20 118/74 97 Room Air 97.9 01/07/18 16:00 97.0 89 20 133/66 97 Room Air 97.0 89 01/07/18 16:00 80 Intake and Output 01/07/18 01/08/18 19:00 07:00 Intake Total 860 ml Output Total 700 ml Balance 160 ml Intake Oral 860 ml Output Urine Total 700 ml # Voids 7 # Bowel Movements 3 Height (Feet): 5 Height (Inches): 2.00 Weight (Pounds): 180 FABIENNE GODFREY January 08, 2018 14:17
[2018-01-08 16:00] VITALS: BP 147/79
--- NOTE | 2018-01-10 11:57 | Diagnostic Imaging Report ---
EXAM: XR Chest, 1 View CLINICAL HISTORY: SOB TECHNIQUE: Frontal view of the chest. COMPARISON: No relevant prior studies available. FINDINGS: Lungs: Bilateral interstitial prominence may be edema or infiltrate. Bibasilar atelectasis/consolidations. Hypoventilatory lungs. Pleural space: Probable bilateral pleural effusions. No pneumothorax. Heart: Cardiomegaly. Mediastinum: Unremarkable. Bones/joints: Unremarkable. IMPRESSION: 1. Bilateral interstitial prominence may be edema or infiltrate. Bibasilar atelectasis/consolidations. 2. Probable bilateral pleural effusions. 3. Findings likely CHF.
--- NOTE | 2018-01-10 13:52 | Discharge Summary ---
Discharge Summary Discharge Summary Discharge Summary DATE OF ADMISSION: 01/05/2018 DATE OF DISCHARGE: 01/08/2018 CONSULTANTS: Dr. Chandra Sosa BRIEF HOSPITAL COURSE: Patient is an 87-year-old white female, with history of paroxysmal atrial fibrillation, was sent to the emergency room via EMS for evaluation of shortness of breath and palpitations. Apparently diltiazem has been discontinued because of possible allergic reaction as patient has chronic nonspecific rash. She has medical history significant for hypertension, small bowel obstruction, status post cholecystectomy, GERD, history of breast cancer status post lumpectomy, hyperlipidemia, hypothyroidism, hiatal hernia. She lives at home but was recently hospitalized and was discharged to [facility]. She was recently in [facility], and had recent reported by family, drainage of an abscess in the abdomen which sounds likely to be perforated diverticulitis. On evaluation at ED, patient was tachycardic, EKG was in rapid atrial fibrillation. She was given beta toña. Blood work revealed elevated white count. Lactic acid 3.2. Urinalysis with 15-20 WBC, 5-10 RBC, 2+ protein. Chest x-ray with bilateral interstitial prominence, findings likely CHF. She was admitted to telemetry for evaluation of atrial fibrillation with RVR and leukocytosis, UTI. She underwent cardiac evaluation. Coreg was increased to 25 mg twice a day. She was given digoxin 0.125 mg daily and amiodarone 200 mg twice a day. She was placed on anticoagulation with a decreased 2.5 mg twice a day. Digoxin level was 0.6. She had BNP of more than 5,000. Echocardiogram done showed ejection fraction 55%, likely due to hypertensive heart disease. Leukocytosis down trended. She has multiple allergies to medications. She was initially given Keflex and was transitioned to Levaquin.. She was continued on prednisone 5 mg daily at bedtime and triamcinolone topically when necessary. Urine culture with growth of Proteus and Serratia, sensitive to Levaquin. She was eventually [facility]. FINAL DIAGNOSES: Sepsis, present on admission Urinary tract infection with Proteus and Serratia Atrial flutter with RVR Diastolic congestive heart failure Status post drainage of abdominal abscess Hyperlipidemia Hypothyroidism DISPOSITION: Patient was discharged to [facility] [place]. DISCHARGE MEDICATIONS: Refer to Discharge Medication List. Continue Levaquin for 5 more days. I have been assigned to dictate discharge summary on this account, and I was not involved in the patient's management. Michelle Dhaliwal NP January 10, 2018 13:52
== END 2018-01-08 16:45 | DRG 871 ==
LOC: EDBD 15:04 → EMR 16:11 → EDBEDREQ 17:07 → 2E 17:19
DX: A41.9 Sepsis, unspecified organism (principal); E43 Unspecified severe protein-calorie malnutrition; N39.0 Urinary tract infection, site not specified; I48.92 Unspecified atrial flutter; I50.30 Unspecified diastolic (congestive) heart failure; B96.4 Proteus (mirabilis) (morganii) as the cause of diseases classified elsewhere; B96.89 Other specified bacterial agents as the cause of diseases classified elsewhere; E78.5 Hyperlipidemia, unspecified; E03.9 Hypothyroidism, unspecified; I48.0 Paroxysmal atrial fibrillation; I11.0 Hypertensive heart disease with heart failure; K21.9 Gastro-esophageal reflux disease without esophagitis; Z85.3 Personal history of malignant neoplasm of breast; K44.9 Diaphragmatic hernia without obstruction or gangrene; Z88.1 Allergy status to other antibiotic agents; Z88.0 Allergy status to penicillin; Z88.2 Allergy status to sulfonamides; Z88.8 Allergy status to other drugs, medicaments and biological substances
CPT/HCPCS: 36415; 71045; 80048; 80053; 80061; 80162; 81003; 82550; 82553; 83036; 83605; 83690; 83735; 83880; 84439; 84443; 84484; 85007; 85025; 85610; 85730; 87040; 87081; 87086; 87181; 93005; 93306; 99285; 99291